=== PATIENT | female | born 1990 | race Caucasian/White ===

== ENCOUNTER 2017-11-25 07:41 | Inpatient (IN) | payer MEDICAID ==
[2017-10-23 21:28] VITALS: Ht 166.4 cm; Wt 86.2 kg
[~2017-11-25] VITALS: Ht 166.4 cm; Wt 86.2 kg
[2017-11-25] MEDS ORDERED: DLR(*) 1000 ML BAG 1,000 ML IV PRN (08:09)
[2017-11-25] MEDS ORDERED: OXYTOCIN 30 UNIT/NS 500 ML 500 ML IV PRN ×2 (08:09→15:17)
[2017-11-25] MEDS ORDERED: FAMOTIDINE(*) 20MG/50ML PREMIX 50 ML IVPB PRN (08:09)
[2017-11-25] MEDS ORDERED: LIDOCAINE 1% LOCAL 300 MG/30ML INJ PRN (08:10)
[2017-11-25] MEDS ORDERED: METOCLOPRAMIDE 10 MG/2 ML SDV IVP PRN (08:10)
[2017-11-25] MEDS ORDERED: cefOXitin/DEX(*) 2GM/50ML PREM 50 ML IVPB PRN (08:10)
[2017-11-25] MEDS ORDERED: FLUSH 10 ML SYR IVP PRN (08:10)
[2017-11-25] MEDS ORDERED: fentaNYL CITR 100 MCG/2 ML AMP IVP PRN (08:10)
[2017-11-25 08:48] LABS: PLATELET COUNT, AUTOMATED 161 K/uL (150-450)
--- NOTE | 2017-11-25 09:03 | History & Physical ---
History of Present Illness Age of Patient: 27 : 8 Para or TPAL: 4034 EDC per U/S: Nov 26, 2017 Estimated Gestational Age: 39.6 Chief Complaint contractions History of Present Illness The patient is a 27 year old 8 para 4034 admitted at 39 6/7 weeks estimated gestational age with an estimated date of delivery 11/26/17. Patient is admitted with complaint of contractions. No vaginal bleeding. Good movement and occasional contractions. She was evaluated for active labor. She had course complicated by no care. She reports moving to [place] in last 2 months. She had 12 week ultrasound in [place] establishing her due date of 11/26/17. She is unemployed and had worked in [employer] in [place]. She reports home schooling her children. She has been checking sugars and reports have not been over 150 even with eating more carbs. She reports history of headaches with migraines common for her. No RUQ pain or bleeding. Her contractions have been ongoing for 3 days. History Group B Strep Screen: Unknown Allergies: Coded Allergies: No Known Drug Allergies (Unverified , 10/23/17) Med Rec Home Meds No Active Prescriptions or Reported Meds Review of Systems Constitutional: No Fever, No Weight Loss Neurological: No Syncope, No Confusion Eyes: No Vision Change, No Loss of Vision ENT: No Hearing Loss, No Sinus Congestion Cardiovascular: No Chest Pain, No Palpitations Respiratory: No Shortness of Breath, No Cough Gastrointestinal: No Nausea, No Vomiting, No Diarrhea Genitourinary: No Dysuria, No Hematuria Musculoskeletal: No Pain, No Sprain Psychiatric: No Depression Exam General Exam General Apperance: Alert/Awake/No Acute Distress Neuro: No Gross deficits Eyes: Normal Extraocular Movement & Vison ENT: Moist Mucous Membranes Neck: No Masses Cardiovascular: Regular Rate and Rhythm Respiratory: Clear to Auscultation Abdomen: Gravid - Non-Tender : No CVA Tenderness Musculoskeletal: No Weakness/Pain Extremities: No Cyanosis,Clubbing or Edema Integumentary: Skin Intact without Lesions or Rash Psychological: Alert & Oriented X3, Appropriate Mood & Affect Cervical Dialation: 4 (rn) Uterine Contractions(Q min): 3 Fetus Heart Tones: 140 Heart Tone Variabilty: Moderate FHT Accelerations: 10X10 FHT Category: II Assessment and Plan Problems: (1) Active labor at term Assessment & Plan: will try to see if any abnormalities with blood sugars or lab values for hypertension. Will start pcn for unknown GBS status., check growth of fetus. (2) No care in current in third trimester Copies to: AALIYAH DURAND MD, JOHN MD Nov 25, 2017 09:03
[2017-11-25] MEDS ORDERED: PENICILLIN G 5 MILLUN/100 ML 100 ML IVPB ONE (09:05)
[2017-11-25] MEDS ORDERED: EPIDURAL KEYS XX PRN (09:15)
[2017-11-25] MEDS ORDERED: BUPIVACAINE 0.5% INJ 30ML VIAL EPI PRN ×2 (09:15)
[2017-11-25] MEDS ORDERED: ePHEDrine 25 MG/5 ML DISP.SYR IVP PRN ×2 (09:15)
[2017-11-25] MEDS ORDERED: LIDO/EPI 2% MPF 1:200,000 20ML EPI PRN ×2 (09:15)
[2017-11-25] MEDS ORDERED: FENTANYL/ROPIVACAINE 100 ML BAG EPI PRN ×2 (09:15)
[2017-11-25] MEDS ORDERED: BUPIVACAINE 0.25% MPF INJ EPI PRN ×2 (09:15)
[2017-11-25] MEDS ORDERED: fentaNYL CITR 100 MCG/2 ML AMP IT PRN ×2 (09:15)
[2017-11-25] MEDS ORDERED: LIDOCAINE/PF 2% 200MG/10ML AMP 200 MG/10 ML AMPUL EPI PRN ×2 (09:15)
[2017-11-25] MEDS ORDERED: PENICILLIN G 5 MILLUN/100 ML 100 ML ONE (09:27)
[2017-11-25] MEDS: LR(*) 1000 ML BAG 1,000 ML IV PRN ×3 (09:31→15:43)
[2017-11-25] MEDS ORDERED: LABETALOL HCL 100 MG/20ML VIAL IVP PRN (09:35)
[2017-11-25] MEDS ORDERED: ONDANSETRON 4 MG/2 ML VIAL ONE ×2 (09:39→13:08)
--- NOTE | 2017-11-25 10:21 | RADIOLOGY IMAGING REPORT ---
FACILITY: [facility] [place] PATIENT NAME: Ginger Little : 1990 MR: [id number] V: [id number] EXAM DATE: ORDERING PHYSICIAN: AALIYAH DURAND TECHNOLOGIST: Location: [facility] Patient: Ginger Little : 1990 Visit/Account:[id number] Date of Sevice: 11/25/2017 OB LIMITED HISTORY: . Gestational diabetes. COMPARISON: None. TECHNIQUE: Transabdominal imaging was performed for assessment of the fetus and maternal pelvic s tructures. Transvaginal imaging was not performed. FINDINGS: Intrauterine gestations: One. presentation: Cephalic. heart rate: 150 bpm. Amniotic fluid volume: Normal; 4-quadrant JAYY 3.7 cm; MVP 1.6 cm. Placenta: Posterior and fundal. Uterus: Gravid, otherwise grossly unremarkable where visualized. Maternal adnexa/ovaries: Not visualized. Cervix: Not able to be visualized. Gestational Parameters: BPD: 9.2 cm 37 weeks/4 days HC: 34.3 cm 39 weeks/5days AC: 36.0 cm 40 weeks/0 days FL: 7.8 cm 39 weeks/6 days Average ultrasound age (AUA): 39 weeks/ 2 days Estimated weight (EFW): 3804 grams +/- 555 grams EFW for LMP: 68th percentile IMPRESSION: 1. Single viable intrauterine gestation; average ultrasound age 39 weeks/2 days. 2. Oligohydramnios; 4-quadrant JAYY 3.7 cm. Report Dictated By: Devyn Diego MD at 11/25/2017 9:54 AM Report E-Signed By: Devyn Diego MD at 11/25/2017 10:16 AM WSN:[id number]
[2017-11-25] MEDS ORDERED: ACET-1966 PO (10:31)
[2017-11-25] MEDS ORDERED: PREN-127 PO (10:31)
[2017-11-25] MEDS ORDERED: CALC-521 PO (10:31)
[2017-11-25] MEDS ORDERED: TERBUTALINE SULF 1 MG/ML VIAL SC PRN (11:20)
--- NOTE | 2017-11-25 12:13 | Labor Progress Note ---
Labor Subjective Progress Notes Subjective comfortable with epidural Labor Objective Cervical Dialation: 7 (rn) Uterine Contractions(Q min): 3 Fetus Heart Tones: 140 FHT Category: I Other Result Diagram: 11/25/1725 11/25/1732 Assessment and Plan Problems: (1) Active labor at term Assessment & Plan: making progress received epidural comfortable, monitoring for change (2) No care in current in third trimester AALIYAH DURAND MD Nov 25, 2017 12:13
[2017-11-25] MEDS ORDERED: ACETAMINOPHEN 325 MG TAB PO PRN (12:55)
[2017-11-25] MEDS ORDERED: ACETAMINOPHEN 325 MG TAB ONE (13:03)
[2017-11-25] MEDS ORDERED: PENICILLIN G 2.5 MILLUN/100 ML 100 ML IVPB SCH (13:15)
--- NOTE | 2017-11-25 13:42 | Labor Progress Note ---
Labor Subjective Progress Notes Subjective comfortable with epidural headache improved with tylenol Labor Objective Cervical Dialation: 7 Cervical Effacement (%): 80 Cervical Consistency: Soft Cervical Position: Mid Station: 0 Presentation: Vertex Uterine Contractions(Q min): 3 Fetus Heart Tones: 150 Heart Tone Variabilty: Moderate FHT Accelerations: 15X15 FHT Category: I Other Result Diagram: 11/25/17 0825 11/25/17 0832 Assessment and Plan Problems: (1) Active labor at term Assessment & Plan: arom meconium fluid, minimal fluid return, will monitor for change (2) No care in current in third trimester AALIYAH DURAND MD Nov 25, 2017 13:42
[2017-11-25] MEDS ORDERED: NS(*) 0.9% 1000 ML BAG 1,000 ML ONE (15:17)
[2017-11-25] MEDS ORDERED: NS(*) 0.9% 1000 ML BAG 1,000 ML PV PRN (15:17)
[2017-11-25] MEDS ORDERED: TERBUTALINE SULF 1 MG/ML VIAL SUBQ PRN (15:20)
--- NOTE | 2017-11-25 15:20 | Labor Progress Note ---
Labor Subjective Progress Notes Subjective FEELING SOME PRESSURE Vaginal Discharge/Fluid: Green Tinged Fluid Labor Objective Cervical Dialation: 7 Cervical Effacement (%): 90 Cervical Consistency: Soft Cervical Position: Anterior Station: 0 Presentation: Vertex Uterine Contractions(Q min): 8 Fetus Heart Tones: 130 Heart Tone Variabilty: Moderate FHT Accelerations: 15X15 FHT Decelerations: Variable FHT Category: II Other Result Diagram: 11/25/17 0825 11/25/17 0832 Assessment and Plan Problems: (1) Active labor at term Assessment & Plan: IUPC PLACED, AMNIOINFUSION INITIATED FOR VARIABLE DECELS (2) No care in current in third trimester AALIYAH DURAND MD Nov 25, 2017 15:20
--- NOTE | 2017-11-25 16:49 | Procedure Note ---
Anesthetic Placement Note Anesthesia Plan: CSE Permit for Anesthesia Signed: Yes Anesthesia Technique: Patient Sitting Anesthesia Prep: Betadine Interspace: L 3-4 Local Anesthetic: 1% Lidocaine, 25 Gauge Needle Amount Local - cc's: 3 Anesthesia Needle: 17g Touhy/Schliff Anesthesia Attempts: 1 Loss of Resistance: Normal Saline Depth of LOS (cm): 6 Intrathecal Needle: 27 Gauge Pencan Cerebral Spinal Fluid: Yes, Clear Catheter Insertion (cm): 6 Catheter Type: Ortiz - Spring Wound Epidural Dressing: Tegaderm, Tape, Adhesive [place] Anesthesia Tray: Lot Number ([id number]), Expiration Date (2018-08-16), Reference Number ([id number]) Anesthesia Medications: Intrathecal Dose: mcg Fentanyl (20), mg Marcaine MPF (2.5), Time (0956) Epidural Test Dose: 1.5 Lido/Epi (1:200,000), Dose - mL (3), Time (0958), Negative, Other (no S/S IV or IT injection) Epidural Loading Dose: 0.2% Ropivicaine, With Fentanyl 2mcg/ml, Dose - ml (15) , Time (1008), Other (In 5ml increments at 5min. intervals.) Epidural Infusion: 0.2% Ropivicaine, With Fentanyl 2mcg/ml, Start Time: (1030) Epidural Pump Setting: Bolus Dose - mL (5), Lockout - Minutes (15), Maintenance Rate - mL/hr (6), Maximum per Hour - mL (26) Complications: None Comment: Zofran 4mg IVP before procedure. 1417 pt c/o decreased sensory/motor block, bolus with 10ml epidural mix, infusion settings changed to rate of 14ml/hr, bolus 3ml Q15min. 1440 pt reports much better analgesia, motor block back to normal, R=L. 1615 Epidural bolus with Fentanyl 50mcg, infusion continues. Pt is c/o pelvic floor pain, but sensory motor block is as expected, feeling no pain from contractions. ELLEN DE JESUS CRNA Nov 25, 2017 10:47
[2017-11-25] MEDS ORDERED: MAGNESIUM HYDROXIDE* 30ML UDCP PO PRN (16:50)
[2017-11-25] MEDS ORDERED: HYDROCORTISONE 2.5% CR 30GM TB PR PRN (16:50)
[2017-11-25] MEDS ORDERED: LANOLIN OINT 7 GM TUBE TP PRN (16:50)
[2017-11-25] MEDS ORDERED: BENZOCAINE 20% 60 ML BTL TP PRN (16:50)
--- NOTE | 2017-11-25 16:53 | OB Delivery Note ---
Delivery Note Vaginal Delivery Type: Spont. Vaginal Delivery Delivery Date: Nov 25, 2017 Delivery Time: 16:31 Estimated Gestational Age(wks): 39.6 Delivery Anesthesia: Epidural Sex: Male Infant Weight (gms): 3782 [place] Apgars: 1 Minute (7), 5 Minute (8) Repair Needed: Laceration, Superficial, Labial Estimated Blood Loss: 350 Delivery Complications: Nuchal Cord Notes: SPONTANEOUS LABOR, NO CARE, RECEIVED EPIDURAL, PROGRESSED TO 7 AROM MINIMAL FLUID, NO PROGRESS, IUPC AND AMNIOINFUSION STARTED FOR VARIABLE DECELS, AND PITOCIN STATED TO AUGMENT LABOR PATTERN. PROGRESSED TO COMPLETE PUSHED EFFECTIVELY. NUCHAL X2 DELIVERED OVER HEAD REMAINDER DELIVERED WITH EASE. SUPERFICIAL LACS REPAIRED WITH 3-0 VICRYL Tests Superintendent in Attendence: Yes Copies to: AALIYAH DURAND MD, JOHN MD Nov 25, 2017 16:53
[2017-11-25] MEDS ORDERED: IBUPROFEN 800 MG TAB PO SCH (17:00)
--- NOTE | 2017-11-25 17:05 | Anesthesia OB Pre-Anes Eval ---
History of Present Illness Anesthesia Start Date: Nov 25, 2017 Anesthesia Start Time: 09:40 OB Anesthesia Diagnosis: gestational hypertension, spontaneous labor Current Complication: gestational hypertention EDC: Nov 26, 2017 : 7 Para: 3 Result Diagram: 11/25/17 0825 11/25/17 0832 Height (Inches): 65.50 Weight (Pounds): 190 BMI Calculated: 31.13 Past Medical History Medical History: obesity Surgical History: noncontributory Previous Anesthesia: epidural Attended Childbirth Classes?: No Hx Anesthesia Reactions: No Hx Family Anesthesia Reaction: No Home Meds Reported Medications Calcium Carbonate (TUMS) 300 Mg Tab.chew, 300 MG PO, TAB.CHEW 11/25/17 Acetaminophen (TYLENOL) 325 Mg Tablet, 325 MG PO, TAB 11/25/17 Vits W-Ca,Fe,Fa(<1MG) ( VITAMINS) 1 Each Tablet, 1 EACH PO DAILY, TAB 11/25/17 Allergies: Coded Allergies: No Known Drug Allergies (Unverified , 10/23/17) Anesthesia OB ROS Airway Class: l GI ROS: clear liquids, ice chips Last Solids Date: Nov 24, 2017 Last Solids Time: 20:00 ASA Classification: 2 Assessment and Plan Anesthesia Plan: CSE Anesthesia Stop Day: Nov 25, 2017 Anesthesia Stop Time: 16:45 Epidural Catheter Removal: Removed Catheter Intact, Yes, Removed by: (Dilcia De Jesus CRNA) Removal Date: Nov 25, 2017 Removal Time: 16:55 ELLEN DE JESUS CRNA Nov 25, 2017 10:42
[2017-11-25 18:15] VITALS: BP 138/83
[2017-11-25 19:00] VITALS: BP 137/77
[2017-11-25] MEDS: ACETAMINOPHEN 325 MG TAB PO PRN (19:43)
[2017-11-25] MEDS: DOCUSATE CALCIUM 240 MG CAP PO SCH (20:47)
[2017-11-25 23:00] VITALS: BP 118/71
[2017-11-26] VITALS (7 sets, daily range): BP systolic 134–148; BP diastolic 76–103
[2017-11-26] MEDS: GLYCERIN/WITCH HAZEL LEAF 1 PK TP PRN (00:22)
[2017-11-26] MEDS: ACETAMINOPHEN 325 MG TAB PO PRN ×5 (00:26→22:20)
--- NOTE | 2017-11-26 08:44 | OB/GYN Progress Note ---
OB Subjective Progress Notes Subjective Pain controlled, Tolerating diet and activity. Normal lochia. GI: POS Flatus, NEG Nausea, NEG Vomiting : Voiding Well Pain: Mild OB Objective Physical Exam Vital Signs Date Time Temp Pulse Resp B/P (MAP) Pulse Ox O2 Delivery O2 Flow Rate FiO2 11/26/17 07:50 136/76 (96) 11/26/17 07:45 97.0 103 16 95 Room Air Intake and Output 11/27/17 06:59 # Voids 1 General Appearance: Alert/Awake/No Acute Distress Neurological: No Gross deficits Eyes: Normal Extraocular Movement & Vison Cardiovascular: Regular Rate and Rhythm Respiratory: Clear to Auscultation Abdomen: Fundus Firm Extremities: No Cyanosis,Clubbing or Edema, No Edema Integumentary: Skin Intact without Lesions or Rash Psychological: Alert & Oriented X3, Appropriate Mood & Affect Result Diagram: 11/26/17 0624 11/25/17 0832 Assessment and Plan Problems: (1) Active labor at term Status: Resolved (2) No care in current in third trimester (3) care following vaginal delivery Assessment & Plan: Pain controlled, Tolerating diet and activity. Normal lochia. No headache. AALIYAH DURAND MD Nov 26, 2017 08:44
[2017-11-26] MEDS ORDERED: HYDR2TAB4 PO (08:45)
--- NOTE | 2017-11-26 08:49 | OB/GYN Discharge Summary ---
AALIYAH JOYCE MD 11/26/17 0849: Discharge Summary Reason for Hosp/Final Diag: (1) Active labor at term Status: Resolved (2) No care in current in third trimester (3) care following vaginal delivery Hospital Course & Plan: No care. Spontaneous labor, mild preeclampsia. Vaginal delivery on PPD 2, Pain controlled, Tolerating diet and activity. Baby . Normal lochia. (4) Pre-eclampsia, mild, third trimester Hospital Course & Plan: check BP in a week Lates Vital Signs Vital Signs Date Time Temp Pulse Resp B/P (MAP) Pulse Ox O2 Delivery O2 Flow Rate FiO2 11/26/17 07:50 136/76 (96) 11/26/17 07:45 97.0 103 16 95 Room Air Weight (Pounds): 190 Result Diagram: 11/26/1762311/25/17831 Condition: Improved Discharge: Home, Self [facility] Meds Active Scripts Hydromorphone Hcl (HYDROMORPHONE HCL) 2 Mg Tablet, 2-4 MG PO Q4H for PAIN, #20 TAB 0 Refills Prov:AALIYAH JOYCE MD 11/26/17 Reported Medications Calcium Carbonate (TUMS) 300 Mg Tab.chew, 300 MG PO, TAB.CHEW 11/25/17 Acetaminophen (TYLENOL) 325 Mg Tablet, 325 MG PO, TAB 11/25/17 Vits W-Ca,Fe,Fa(<1MG) ( VITAMINS) 1 Each Tablet, 1 EACH PO DAILY, TAB 11/25/17 Follow up Referrals: RADIO REPAIRER - In One Week @ [facility] with Aaliyah Joyce Md Follow up with: Dr. Joyce [phone] Follow up in: 6 wks PP or PO, 5-7 days Discharge Diet: As Tolerates Discharge Activity: Pelvic Rest Copies to: AALIYAH JOYCE MD, KIM N MD 11/27/17 0740: Discharge Summary Reason for Hosp/Final Diag: (1) care following vaginal delivery Hospital Course & Plan: PPD#2. Meeting milestones. Desires discharge to home today. Discussed routine expectations. Questions answered. Follow up in clinic in 6wks for check. (2) No care in current in third trimester Result Diagram: 11/26/1762311/25/1732 Condition: Improved Discharge: Home, Self [facility] Meds Active Scripts Hydromorphone Hcl (HYDROMORPHONE HCL) 2 Mg Tablet, 2-4 MG PO Q4H for PAIN, #20 TAB 0 Refills Prov:AALIYAH JOYCE MD 11/26/17 Reported Medications Calcium Carbonate (TUMS) 300 Mg Tab.chew, 300 MG PO, TAB.CHEW 11/25/17 Acetaminophen (TYLENOL) 325 Mg Tablet, 325 MG PO, TAB 11/25/17 Vits W-Ca,Fe,Fa(<1MG) ( VITAMINS) 1 Each Tablet, 1 EACH PO DAILY, TAB 11/25/17 Follow up Referrals: RADIO REPAIRER - In One Week @ [facility] with Aaliyah Joyce Md Discharge Diet: As Tolerates Discharge Activity: Pelvic Rest Copies to: AALIYAH JOYCE MD, JOHN MD Nov 26, 2017 08:49 BARTOLOME HERNANDEZ MD Nov 27, 2017 07:40
[2017-11-26] MEDS: DOCUSATE CALCIUM 240 MG CAP PO SCH ×2 (09:27→22:20)
[2017-11-26] MEDS: MULTIVITAMINS (PRENATAL) TAB PO SCH (09:27)
--- NOTE | 2017-11-26 13:31 | Anesthesia Post Eval Note ---
Anesthesia Post Eval Note Pt able to participate in Eval: Yes Cardiovascular Status: Satisfactory Respiratory Status: Satisfactory Pain Managment: Satisfactory PO Nausea/Vomiting: Satisfactory Temperature Management: Satisfactory Mental Status: Satisfactory, Alert, Oriented X3 Post-Op Hydration Status: Satisfactory, Tolerating PO Well, Voiding w/o Difficulty Anesthesia Type: CSE Anesthesia Tolerance: Ambulatory without any S/S PDPH, no apparent complications. ELLEN DE JESUS CRNA Nov 26, 2017 13:31
[2017-11-27] VITALS (21 sets, daily range): BP systolic 121–172; BP diastolic 73–101
--- NOTE | 2017-11-27 07:39 | OB/GYN Progress Note ---
OB Subjective Progress Notes Subjective Doing well. Pain controlled with oral medications. Tolerating regular diet. Ambulating. Voiding. Normal lochia. No preeclampsia symptoms. OB Objective Physical Exam Vital Signs Date Time Temp Pulse Resp B/P (MAP) Pulse Ox O2 Delivery O2 Flow Rate FiO2 11/27/17 02:00 97.5 18 142/83 (102) Room Air 11/27/17 00:35 85 11/26/17 15:10 96 General Appearance: Alert/Awake/No Acute Distress Neurological: No Gross deficits Eyes: Normal Extraocular Movement & Vison Cardiovascular: Regular Rate and Rhythm Respiratory: Clear to Auscultation Abdomen: Soft, Non-Tender, Non-Distended, Fundus Firm Extremities: No Cyanosis,Clubbing or Edema, No Edema Integumentary: Skin Intact without Lesions or Rash Psychological: Alert & Oriented X3, Appropriate Mood & Affect Result Diagram: 11/26/17 0624 11/25/17 0832 Assessment and Plan Problems: (1) care following vaginal delivery Assessment & Plan: PPD#2. Meeting milestones. Desires discharge to home today. Discussed routine expectations. Questions answered. Follow up in clinic in 6wks for check. (2) Active labor at term Status: Resolved (3) No care in current in third trimester BARTOLOME HERNANDEZ MD Nov 27, 2017 07:39
[2017-11-27] MEDS: MULTIVITAMINS (PRENATAL) TAB PO SCH (08:38)
[2017-11-27] MEDS: ACETAMINOPHEN 325 MG TAB PO PRN ×3 (08:38→17:52)
[2017-11-27] MEDS: DOCUSATE CALCIUM 240 MG CAP PO SCH ×2 (08:38→22:05)
[2017-11-27] MEDS ORDERED: NIFEdipine 10 MG CAP PO ONE ×2 (09:25→16:00)
[2017-11-27 09:49] LABS: PLATELET COUNT, AUTOMATED 151 K/uL (150-450)
--- NOTE | 2017-11-27 11:18 | OB/GYN Progress Note ---
OB Subjective Progress Notes Subjective Pt had an elevated BP this morning. She denies signs/sx of preeclampsia. OB Objective Physical Exam Vital Signs Date Time Temp Pulse Resp B/P (MAP) Pulse Ox O2 Delivery O2 Flow Rate FiO2 11/27/17 10:58 98.3 105 18 145/94 (111) 97 Room Air General Appearance: Alert/Awake/No Acute Distress Neurological: No Gross deficits Eyes: Normal Extraocular Movement & Vison Cardiovascular: Regular Rate and Rhythm Respiratory: Clear to Auscultation Abdomen: Soft, Non-Tender, Non-Distended, Fundus Firm Extremities: No Cyanosis,Clubbing or Edema, No Edema Integumentary: Skin Intact without Lesions or Rash Psychological: Alert & Oriented X3, Appropriate Mood & Affect Result Diagram: 11/27/1794011/27/17940 Assessment and Plan Problems: (1) Preeclampsia in period Assessment & Plan: Pt developed severe blood pressures this morning with 172/ 101 at 0930. She had Pr:Cr 0.45 prior to delivery. She now meets severe criteria. Her labs are stable since admission. She responded well to Procardia 20mg. Will initiate magnesium for 24hrs and try to manage her BP with Procardia 30XL, but will give one additional short acting dose of 10mg ~ 1600 to get to a more normal scheduled time. (2) care following vaginal delivery Assessment & Plan: Cancel discharge due to new severe features. (3) No care in current in third trimester BARTOLOME HERNANDEZ MD Nov 27, 2017 11:18
[2017-11-27] MEDS ORDERED: CALCIUM GLUC 10% 100 MG/ML VL IVP ONE (11:20)
[2017-11-27] MEDS ORDERED: MAGNESIUM SUL* 4 GM/100 ML BAG 100 ML IVPB ONE (12:00)
[2017-11-27] MEDS ORDERED: LIDOCAINE/SOD BICARB 8.4% SYR ONE (12:13)
[2017-11-27] MEDS: MAGNESIUM SULF 20 GM/500 ML IV 500 ML IV SCH ×2 (12:42→22:05)
[2017-11-27] MEDS: HYDROmorphone HCL 2 MG TAB PO PRN ×2 (14:58→19:06)
[2017-11-27] MEDS ORDERED: DIPHTH/TETANUS/ACEL. PERTUSSIS IM ONLY ONE (16:50)
[2017-11-27] MEDS ORDERED: MEASLES,MUMP,RUBELLA VAC 0.5ML SUBQ ONE (16:50)
[2017-11-27] MEDS ORDERED: INFLUENZA VIRUS VAC 0.5 ML SYR IM ONLY ONE (16:50)
[2017-11-27] MEDS: NIFEdipine XL 30 MG TABCR PO SCH (19:06)
[2017-11-28] VITALS (14 sets, daily range): BP systolic 113–139; BP diastolic 63–88
[2017-11-28] MEDS ORDERED: HYDROmorphone HCL 2 MG TAB PO SCH
[2017-11-28] MEDS: GLYCERIN/WITCH HAZEL LEAF 1 PK TP PRN (00:23)
[2017-11-28] MEDS: HYDROmorphone HCL 2 MG TAB PO PRN ×4 (00:23→15:10)
[2017-11-28] MEDS: ACETAMINOPHEN 325 MG TAB PO PRN ×4 (03:26→18:51)
[2017-11-28] MEDS: NIFEdipine XL 30 MG TABCR PO SCH ×2 (07:15→18:52)
[2017-11-28] MEDS: MAGNESIUM SULF 20 GM/500 ML IV 500 ML IV SCH (08:30)
[2017-11-28] MEDS: DOCUSATE CALCIUM 240 MG CAP PO SCH ×2 (09:28→18:52)
[2017-11-28] MEDS: MULTIVITAMINS (PRENATAL) TAB PO SCH (09:28)
[2017-11-28] MEDS ORDERED: Nifedipine PO (16:28)
--- NOTE | 2017-11-28 16:31 | OB/GYN Progress Note ---
OB Subjective Progress Notes Subjective Feeling much better now that the magnesium has been turned off. Denies any headaches or blurry vision. Bleeding appropriate. Tolerating regular diet. Ambulatory. Voiding with out any difficulty. GI: NEG Nausea, NEG Vomiting, NEG Flatus, NEG Bowel Movement : Voiding Well, Vaginal Bleeding, Moderate Pain: Mild Neurological: No Headache, No Other Eyes: No Visual Disturbances OB Objective Physical Exam Vital Signs Date Time Temp Pulse Resp B/P (MAP) Pulse Ox O2 Delivery O2 Flow Rate FiO2 11/28/17 15:59 113 16 123/80 (94) 96 Room Air 11/28/17 15:15 98.0 Intake and Output 11/29/17 07:00 Intake Total 1953 ml Output Total 1850 ml Balance 103 ml Intake Oral 1240 ml IV Total 713 ml Output Urine Total 1850 ml # Voids 7 General Appearance: Alert/Awake/No Acute Distress Neurological: No Gross deficits Eyes: Normal Extraocular Movement & Vison ENT: Normal Neck: No Masses Cardiovascular: Normal Rhythm & Peripheral Pulses, Regular Rate and Rhythm Respiratory: No Respiratory Distress, Clear to Auscultation Abdomen: Soft, Non-Tender, Non-Distended, Fundus Firm Extremities: No Cyanosis,Clubbing or Edema, No Edema Integumentary: Skin Intact without Lesions or Rash Psychological: Alert & Oriented X3, Appropriate Mood & Affect Result Diagram: 11/27/1794011/27/17940 Assessment and Plan 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 Pt to follow up in the office next week for blood pressure check. Precautions given. (2) care following vaginal delivery (3) No care in current in third trimester BHAVANA COTTON DO Nov 28, 2017 16:31
[2017-11-28] MEDS ORDERED: HYDROmorphone 2 MG TAB TH 2 TAB/BOTTLE PO PRN (17:20)
[2017-11-28] MEDS ORDERED: HYDROmorphone HCL 2 MG TAB PO PRN (17:45)
[2017-11-28] MEDS ORDERED: NIFEdipine XL 30 MG TABCR PO SCH ×2 (19:00)
== END 2017-11-28 19:45 | disposition home or self-care (01) | DRG 774 ==
LOC: OB 07:41
PROVIDERS: ADMIT Obstetrics & Gynecology; ATTEND Obstetrics & Gynecology
PROC: 10E0XZZ Delivery of Products of Conception, External Approach (ICD-10-PCS; principal; 2017-11-25)
PROC: 0HQ9XZZ Repair Perineum Skin, External Approach (ICD-10-PCS; 2017-11-25)
PROC: 10907ZC Drainage of Amniotic Fluid, Therapeutic from Products of Conception, Via Natural or Artificial Opening (ICD-10-PCS; 2017-11-25)
PROC: 10H07YZ Insertion of Other Device into Products of Conception, Via Natural or Artificial Opening (ICD-10-PCS; 2017-11-25)
PROC: 4A1H74Z Monitoring of Products of Conception, Cardiac Electrical Activity, Via Natural or Artificial Opening (ICD-10-PCS; 2017-11-25)
PROC: 3E0E7KZ Introduction of Other Diagnostic Substance into Products of Conception, Via Natural or Artificial Opening (ICD-10-PCS; 2017-11-25)
DX: O14.04 Mild to moderate pre-eclampsia, complicating childbirth (principal); O14.15 Severe pre-eclampsia, complicating the puerperium; O77.0 Labor and delivery complicated by meconium in amniotic fluid; O69.81X0 Labor and delivery complicated by cord around neck, without compression, not applicable or unspecified; O70.0 First degree perineal laceration during delivery; O76 Abnormality in fetal heart rate and rhythm complicating labor and delivery; Z3A.39 39 weeks gestation of pregnancy; Z37.0 Single live birth
CPT/HCPCS: 36415; 76815; 80305; 81001; 82040; 82247; 82310; 82374; 82435; 82565; 82570; 82947; 83615; 83735; 84075; 84132; 84155; 84156; 84295; 84450; 84460; 84520; 84550; 85025; 85027; 86592; 86762; 86850; 86900; 86901; 87340; 88307; J2405; J2540; J3010; J3475; J7030; J7120; S0020